=== PATIENT | male | born 1955 | race Caucasian/White ===

== ENCOUNTER → 2023-11-22 08:16 | Outpatient (REF) | payer OTHER, SELFPAY | LOC: RAD 08:16 | PROVIDERS: ATTENDING PHYSICIAN Internal Medicine Hematology & Oncology; FAMILY PHYSICIAN Family Medicine | DX: C67.4 Malignant neoplasm of posterior wall of bladder (principal); R53.83 Other fatigue | CPT/HCPCS: 71260; 74177; Q9967 ==

== ENCOUNTER 2023-11-30 18:16 | Inpatient (IN) | payer OTHER, SELFPAY ==
[2023-11-30] VITALS (7 sets, daily range): BP systolic 110–133; BP diastolic 71–93; BMI 32.8
--- NOTE | 2023-11-30 11:17 | ED.GENMED ---
History of Present Illness
<Araceli Wolf PA-C - Last Filed: 11/30/23 17:08>
General
Chief Complaint: Abdominal Symptoms
Source: patient
Exam Limitations: none
Time Seen by Provider: 11/30/23 11:15
Nursing documentation reviewed up to this point in time: agreed with
Travel History
Have you had any contact with someone who has COVID-19?: No
Do you have any symptoms of coronavirus? Fever > 100 degrees, chills, cough, shortness of breath, sore throat, loss of taste or smell, muscle aches, or headache?: No
History of Present Illness
History of Present Illness:
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
days. Patient also had associated diarrhea. Patient states that his family have had similar symptoms and have been getting better, however his symptoms persist. Patient states that with the vomiting and diarrhea, he feels very dehydrated has not
been able to eat much. His PCP sent him here because they are concerned about possible dehydration. Patient denies any blood in his vomit, melena. Patient denies any fevers or chills.
Past History
<Araceli Wolf PA-C - Last Filed: 11/30/23 17:08>
Past History
ED Past Medical History: CVA, HTN, Hypercholesterolemia and Other (Charleen's granulomatosis); Negative Asthma or NIDDM
ED Past Surgical History: Orthopedic and Tonsilectomy
Social History
Tobacco: Non-smoker
Alcohol: Occasional
Drug: None
Personal:
Living: with family
Employment: Employed
Family History
Family History: CAD
Review of Systems
<Araceli Wolf PA-C - Last Filed: 11/30/23 17:08>
Review of Systems
All Other Systems: ROS reviewed and negative except as documented in HPI and ROS
Phy Exam
<Araceli Wolf PA-C - Last Filed: 11/30/23 17:08>
Physical Exam
Physical Exam:
General: Patient is well appearing and in no acute distress; non-toxic
Skin: Warm and dry, no rashes or lesions
Head: Normocephalic, atraumatic
Eyes: Sclera non-icteric. EOMs intact. PERRLA.
Cardiac: Tachycardic otherwise regular rhythm, no murmurs
Peripheral Vascular: No lower extremity edema
Pulm: Normal respiratory effort, no wheezes, rales, or rhonchi
Abdomen: Diffuse epigastric abdominal tenderness with guarding. Abdomen distended. Bowel sounds not heard. No palpable abdominal masses.
Neuro: CN II-XII intact, no focal neurologic deficits.
Psychiatric: Appropriate mood and affect.
Course
<Araceli Wolf PA-C - Last Filed: 11/30/23 17:08>
Orders/Labs/Results
Orders:
Orders
11/30/23 11:28
0.9% Sodium Chloride 1000 ml [Nss] 1,000 ml IV BOLUS
11/30/23 11:43
Complete Blood Count/With Diff Urgent
Comprehensive Metabolic Panel Urgent
Lipase Urgent
11/30/23 11:51
CT Abd/pel Without Iv Or Oral Urgent
Reason For Exam: epigastric abdominal pain, per dr. mcgrath
0.9% Sodium Chloride 500 ml [Nss] 500 ml IV BOLUS
11/30/23 11:52
Ondansetron Injectable [Zofran] 4 mg IV NOW STA
11/30/23 13:44
Consult Surgery [SURGICAL CONSULT] Urgent
Consulting Provider: Charles Falcon
Was physician already notified: Yes
Abnormal Lab Results
11/30/23
11:43
Absolute Lymphs (auto) 1.0 L 10^3/uL
(1.2-3.4)
Absolute Monos (auto) 1.1 H 10^3/uL
(0.1-0.6)
Lymphocytes % 15.5 L %
(20.5-51.1)
Monocytes % 17.6 H %
(1.7-9.3)
Carbon Dioxide 21 L mmol/L
(22-30)
BUN 61 H mg/dl
(9-20)
Creatinine 1.8 H mg/dL
(0.7-1.3)
Glucose 139 H mg/dl
(70-99)
ALT 92 H U/L
(0-50)
11/30/23 11:43
11/30/23 11:43
Vital Signs
Initial and Last Documented VS:
Initial Vital Signs
Temp Pulse Resp BP Pulse Ox
97.8 F 116 20 131/93 95
11/30/23 11:12 11/30/23 11:12 11/30/23 11:12 11/30/23 11:12 11/30/23 11:12
Last Documented Vital Signs
Temp Pulse Resp BP Pulse Ox
97.8 F 107 18 131/76 95
11/30/23 11:12 11/30/23 15:09 11/30/23 15:09 11/30/23 15:09 11/30/23 15:09
<Krishna Mcgrath MD - Last Filed: 11/30/23 14:44>
Orders/Labs/Results
Orders:
Orders
11/30/23 11:28
0.9% Sodium Chloride 1000 ml [Nss] 1,000 ml IV BOLUS
11/30/23 11:43
Complete Blood Count/With Diff Urgent
Comprehensive Metabolic Panel Urgent
Lipase Urgent
11/30/23 11:51
CT Abd/pel Without Iv Or Oral Urgent
Reason For Exam: epigastric abdominal pain, per dr. mcgrath
0.9% Sodium Chloride 500 ml [Nss] 500 ml IV BOLUS
11/30/23 11:52
Ondansetron Injectable [Zofran] 4 mg IV NOW STA
11/30/23 13:44
Consult Surgery [SURGICAL CONSULT] Urgent
Consulting Provider: Charles Falcon
Was physician already notified: Yes
Abnormal Lab Results
11/30/23
11:43
Absolute Lymphs (auto) 1.0 L 10^3/uL
(1.2-3.4)
Absolute Monos (auto) 1.1 H 10^3/uL
(0.1-0.6)
Lymphocytes % 15.5 L %
(20.5-51.1)
Monocytes % 17.6 H %
(1.7-9.3)
Carbon Dioxide 21 L mmol/L
(22-30)
BUN 61 H mg/dl
(9-20)
Creatinine 1.8 H mg/dL
(0.7-1.3)
Glucose 139 H mg/dl
(70-99)
ALT 92 H U/L
(0-50)
11/30/23 11:43
11/30/23 11:43
Vital Signs
Initial and Last Documented VS:
Initial Vital Signs
Temp Pulse Resp BP Pulse Ox
97.8 F 116 20 131/93 95
11/30/23 11:12 11/30/23 11:12 11/30/23 11:12 11/30/23 11:12 11/30/23 11:12
Last Documented Vital Signs
Temp Pulse Resp BP Pulse Ox
97.8 F 107 18 131/76 95
11/30/23 11:12 11/30/23 15:09 11/30/23 15:09 11/30/23 15:09 11/30/23 15:09
<Araceli Wolf PA-C - Last Filed: 11/30/23 17:08>
MDM/Problems Addressed
Differential Diagnosis Includes:
Differentials include gastroenteritis, small bowel obstruction, pancreatitis, cholecystitis, C. difficile colitis, gastritis
MDM/Problems Addressed:
nausea, vomiting, abdominal pain
Chronic conditions affecting care:
HTN, HLP, bladder cancer status post prostatectomy/urostomy,
<Araceli Wolf PA-C - Last Filed: 11/30/23 17:08>
*Critical Care Note
Total Time (30-74mins, 75-104mins- exclusive of procedures): Not Applicable
<SIMEON Aguilar Last Filed: 11/30/23 17:08>
Patient Management
Escalation/DeEscalation of care consider admission/obs:
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
days. On exam, he has a distended abdomen and lack of bowel sounds. He has an DAVID, likely from dehdyration. CT scan demonstrates a small bowel obstruction. PT was seen by surgery who will follow patient admit to hospitalist, no plan for surgery as
of now,
<Araceli Wolf PA-C - Last Filed: 11/30/23 17:08>
Update Note
Update Note:
1:39 pm--general surgery was consulted via tiger text
1:47 pm--updated patient on results
ED Attending Note
<SIMEON Aguilar Last Filed: 11/30/23 17:08>
-
Portions of this chart may have been created with voice recognition software.� Occasional wrong word or��sound alike� substitutions may have occurred due to the inherent limitations of voice recognition software.
<Krishna Mcgrath MD - Last Filed: 11/30/23 14:44>
ED Attending Note
Patient seen and examined by attending physician: Yes
I performed the substantive portion of visit, reviewed & personally made and approve the management plan that is documented in note by myself or JAYSON.: Yes
ED Attending Note:
68-year-old male presents with nausea vomiting. Started with diarrhea 3 to 4 days ago. Other family members with similar like symptoms however they all improved. However since then patient has had abdominal distention and been unable to keep p.o.
fluid or solids down. Some vague mid abdominal discomfort.
On exam patient is nontoxic in no obvious distress. Lungs clear and equal. Heart regular rate and rhythm no murmur. Abdomen with moderate tension with no significant bowel sounds and mild mid abdominal tenderness. Ureteral conduit
Impression: Although this may be a gastroenteritis similar to family members and concerned with the abdominal distention for SBO. CT pending.
Discharge Plan
Departure
Patient Disposition: Admit
Date of Disposition: 11/30/23
Time of Disposition: 17:04
Admit to: Med/Surg
Presentation/result/management discussed w/ accepting MD/DO: Hospitalist
Patient with high blood pressure during this ER visit?: Yes
Condition: Fair
Discharge Problem:
Small intestine obstruction
Prescriptions:
No Action
losartan 50 MG tablet
100 mg PO 1800
methylprednisolone 4 MG tablet
4 mg PO DAILY
aspirin 81 MG tablet,delayed release (DR/EC)
81 mg PO DAILY
rosuvastatin 5 MG tablet
5 mg PO 1800
mycophenolate mofetil [CellCept] 250 mg Capsule
500 mg PO DAILY
Referrals:
NONE,* [Active] -
Interventions
Interventions:
*Risk Screen - Suicide Last Done: 11/30/23 11:22
*General Assessment Last Done: 11/30/23 11:22
*Neglect/Abuse Screening Last Done: 11/30/23 11:22
ED- Fall Risk Assessment Last Done: 11/30/23 11:22
*ED COVID-19 Vaccine History Last Done: 11/30/23 11:12
NG-Ejyqwk-Bxwymfxtmw Assessment Last Done: 11/30/23 11:22
Discharge Date and Time
Print Language: BULGARIAN
[2023-11-30] MEDS: NSS 1000 IV ×2 (11:44→20:26)
[2023-11-30] MEDS: NSS 500 IV (11:54)
[2023-11-30] MEDS: ZOFRAN 4 MG IV (11:57)
[2023-11-30 12:00] LABS: % Basophils 0.8 % (0-2); % Eosinophils 0.6 % (0-6); % Immature Granulocytes 0.3 % (0-0.5); % Lymphocytes 15.5 % (20.5-51.1); % Monocytes 17.6 % (1.7-9.3); % Neutrophils 65.2 % (42.2-75.2); Absolute Basophils 0.1 10^3/uL (0-0.2); Absolute Monocytes 1.1 10^3/uL (0.1-0.6); Absolute Neutrophils 4.2 10^3/uL (1.4-6.5); Hematocrit 48.2 % (39.0-52.0); Hemoglobin 16.6 g/dL (13.0-18.0); Mean Corp Hgb Conc. 34.4 g/dL (33.0-37.0); Mean Corpuscular Hgb 30.9 pg (27.0-31.0); Mean Corpuscular Volume 89.8 fL (80.0-94.0); Mean Platelet Volume 9.4 fL (7.4-10.4); Nucleated Red Blood Cells % 0 % (-); Platelet Count 247 10^3/uL (130-400); Red Blood Cell Count 5.37 10^6/uL (4.70-6.10); Red Cell Dist. Width 13.1 % (11.5-14.5); White Blood Cell Count 6.5 10^3/uL (4.8-10.8)
[2023-11-30 12:37] LABS: Blood Urea Nitrogen 61 mg/dl (9-20); Glucose 139 mg/dl (70-99); eGFR 40.75
[2023-11-30 12:38] LABS: Albumin 4.3 g/dl (3.5-5.0); Alkaline Phosphatase 52 U/L (38-126); Calcium 9.3 mg/dl (8.4-10.2); Carbon Dioxide 21 mmol/L (22-30); Chloride 102 mmol/L (98-107); Potassium 4.1 mmol/L (3.5-5.1); Sodium 135 mmol/L (135-145)
[2023-11-30 12:39] LABS: ALT (SGPT) 92 U/L (0-50); AST (SGOT) 46 U/L (17-59)
[2023-11-30 12:50] LABS: Lipase 71 U/L (23-300)
--- NOTE | 2023-11-30 16:25 | CON.GS ---
Consultation
-
Requesting Provider: Luciano
Performing Provider: Ezekiel
Reason for Consultation: SBO
Medical History
-
Chief Complaint: Abd pain
History of Present Illness:
68M with acute onset diarrhea that began 3 days ago. His and 2 sons also had similar GI complaints around this time. His diarrhea progressed to distention with n/v. He has been unable to take PO and was referred to the ED by PCP with concern
for dehydration. Never had a similar issue before. He has had a normal BM since the diarrhea occurred 3 days ago but is unsure about flatus. He is not presently nauseated but did receive zofran. His urostomy has been functioning well. He is on
prednisone for Charleen's.
Past Medical History
Past Medical History: Other (CVA, HTN, Hypercholesterolemia and Other (Charleen's granulomatosis))
Past Surgical History: Orthopedic, Tonsilectomy and Urological (robotic cystectomy and urostomy)
Social History
Tobacco: Non-Smoker
Alcohol: Occasional
Drug: None
Personal:
Living: With Family
Employment: Employed (dentist)
Family History
Family History: Other (as per HPI)
Allergies / Home Medications
Allergy/AdvReac Type Severity Reaction Status Date / Time
rituximab Allergy coughing Verified 11/30/23 11:13
�Medication �Instructions �Recorded �Confirmed �Type
aspirin 81 mg tablet,delayed 81 mg PO DAILY 03/23/21 09/23/22 History
release
losartan 50 mg tablet 100 mg PO 1800 03/23/21 09/23/22 History
methylprednisolone 4 mg tablet 4 mg PO DAILY 03/23/21 09/23/22 History
rosuvastatin 5 mg tablet 5 mg PO 1800 03/23/21 09/23/22 History
mycophenolate mofetil 250 mg 500 mg PO DAILY 04/08/22 09/23/22 History
capsule (CellCept)
Review of Systems
-
A 10 point review of systems was completed, and was negative except as per HPI.
Physical Exam
Vital Signs
Temp Pulse Resp BP Pulse Ox
97.8 F 107 18 131/76 95
11/30/23 11:12 11/30/23 15:09 11/30/23 15:09 11/30/23 15:09 11/30/23 15:09
Lab Results
11/30/23 11:43
11/30/23 11:43
WBC 6.5 10^3/uL (4.8-10.8) 11/30/23 11:43
Hgb 16.6 g/dL (13.0-18.0) 11/30/23 11:43
Hct 48.2 % (39.0-52.0) 11/30/23 11:43
Plt Count 247 10^3/uL (130-400) 11/30/23 11:43
Abs Immat Gran (auto) 0.0 10^3/uL (0-0.05) 11/30/23 11:43
Neutrophils % 65.2 % (42.2-75.2) 11/30/23 11:43
Physical Exam
General: No Apparent Distress
HEENT: Normocephalic and Anicteric
GI: Soft, Non Tender, Distended (moderate distention with tympany) and Other (urostomy ppv with clear yellow fluid in bag)
Skin: Warm and Dry
Neuro: AO x 3
Psych: Calm
Data Reviewed
-
CT Scan: Image Personally Visualized and interpreted, Report Reviewed by me and Discussed with Patient
Labs: Labs Reviewed by me and Discussed with Patient
Old Records: Reviewed
Assessment / Plan
-
68M with SBO
Sick contacts with GI complaints recently among family members, perhaps an element og gastroenteritis contributing to presentation
No leukocytosis
BUN 61, Cr 1.8, possible DAVID
CT with dilated jejunum and decompressed distal small bowel, possible transition point at anterior abdominal wall in left lower quadrant (near Pfannenstiel scar)
Limited study without contrast
Plan:
Admit to Hospitalist
NPO/IVF
PRN pain meds / anti-emetics
NGT if vomiting
Monitor for ROBF
If no improvement within 24-48 hrs consider PO contrast study
DVT ppx
Will follow
--- NOTE | 2023-11-30 17:25 | HPS.HSE ---
Family Physician
-
Family Physician: Lenard Finley
Chief Complaint
-
abdominal pain
History of Present Illness
68-year-old male past medical history of Charleen's granulomatosis, hypertension, hyperlipidemia, prior TIA, bladder cancer status post urostomy, presenting with diffuse upper abdominal pain, nausea vomiting for the past few days since Tuesday. This
was associate with some diarrhea initially but he has not had a bowel movement in 1 to 2 days.. He states that his family members have had similar symptoms starting 6 days ago and have been getting better however since symptoms have persisted. He
has had decreased p.o. intake for the past few days. Primary care sent him to the emergency room. He denies any blood in the vomit or dark stool. He denies any fevers or chills.
Medical History
Past Medical History
Past Medical History: Reports Other (Charleen's granulomatosis, hypertension, hyperlipidemia, prior TIA, bladder cancer status post urostomy, )
Past Surgical History: Reports Urological
Social History
Tobacco: Non-smoker
Alcohol: Occasional
Drug: None
Family History
Family History: Not pertinent
Allergies / Home Medications
Allergies reflects when Allergies were last updated in [facility].
Home Medications with original date entered in [facility]
Allergy/Medication List:
Allergies
Allergy/AdvReac Type Severity Reaction Status Date / Time
rituximab Allergy coughing Verified 11/30/23 11:13
Home Medications
aspirin 81 mg tablet,delayed release 81 mg PO DAILY@0700 03/23/21
methylprednisolone 4 mg tablet 4 mg PO QPM 03/23/21
amlodipine 5 mg tablet 5 mg PO DAILY 11/30/23
losartan 100 mg tablet 100 mg PO QPM 11/30/23
rosuvastatin 20 mg tablet 20 mg PO QPM 11/30/23
tadalafil 5 mg tablet 5 mg PO QPM 11/30/23
Review of Systems
-
History Source: Patient
A 12 point ROS was completed and negative except as noted: Yes
Constitutional: Reports No Symptoms
EENT: Reports No Symptoms
Respiratory: Reports No Symptoms
Cardiac: Reports No Symptoms
Abdomen/GI: Reports See HPI
: Reports No Symptoms
Musculoskeletal: Reports No Symptoms
Skin: Reports No Symptoms
Neurological: Reports No Symptoms
Endocrine: Reports No Symptoms
Hematologic/Lymphatic: Reports No Symptoms
Psych: Reports No Symptoms
Physical Exam
Vital Signs
Vital Signs
Temp Pulse Resp BP Pulse Ox
97.8 F 107 18 131/76 95
11/30/23 11:12 11/30/23 15:09 11/30/23 15:09 11/30/23 15:09 11/30/23 15:09
Physical Exam
General: Well Developed, Well Nourished and No Apparent Distress
HEENT: NormoCephalic, Moist mucous membranes and Atraumatic
Respiratory: Clear
Cardiac: S1/S2 and Regular Rhythm; No Murmur or Rub
GI: Soft, Non Distended, Normal Bowel Sounds and Tender (epigastric ); No Organomegaly
Rectal: Deferred by Provider
Musculoskeletal: No Clubbing, No Cyanosis and No Edema
Skin: No Rash
Neuro: Nonfocal/grossly intact
Laboratory Results
-
11/30/23 11:43
11/30/23 11:43
Laboratory Results
Total Bilirubin 1.0 mg/dl (0.2-1.3) 11/30/23 11:43
AST 46 U/L (17-59) 11/30/23 11:43
ALT 92 U/L (0-50) H 11/30/23 11:43
Alkaline Phosphatase 52 U/L (38-126) 11/30/23 11:43
Lipase 71 U/L (23-300) 11/30/23 11:43
Data Reviewed
-
Lab Data: Labs Reviewed by me
Old Records: Reviewed
Impression/Plan
-
IMPRESSION:
PLAN:
# Partial mid to distal small bowel obstruction possibly secondary to adhesions from prior bladder surgery/urostomy
-CT abdomen pelvis shows small bowel dilatation with air-fluid level suggesting partial mid to distal small bowel obstruction possibly related to adhesions
-N.p.o., cannot tolerate p.o. medications
-IV fluids
-NG tube if vomiting
-General surgery following
# DAVID prerenal
-IV fluids
-Hold losartan
Charleen's granulomatosis
-Continue methylprednisolone as IV
Essential hypertension
-Hold amlodipine, losartan
-As needed hydralazine
Hyperlipidemia
-Hold statin
Prior TIA
-Hold aspirin
Bladder cancer status post bladder resection with urostomy
-Hold tadalafil
Full code
DVT prophylaxis�heparin
N.p.o.
--- NOTE | 2023-11-30 19:49 | PTCARENOTE ---
pt arrived via stretcher from ed. pt walked in unassisted, aaox3, VSS, no c/o N/V or pain. see MAR and assessment for further details. pt has urostomy, collection bag provided. call singh within reach.
[2023-11-30] MEDS: SOLU-MEDROL PF 4 MG IV (20:26)
[2023-11-30] MEDS: HEPARIN 5000 UNITS SC (20:27)
[2023-12-01] MEDS: NSS 1000 IV ×2 (06:11→16:30)
[2023-12-01 06:40] LABS: % Basophils 0.5 % (0-2); % Eosinophils 0.3 % (0-6); % Immature Granulocytes 0.3 % (0-0.5); % Monocytes 10.6 % (1.7-9.3); % Neutrophils 74.3 % (42.2-75.2); Absolute Lymphocytes 0.9 10^3/uL (1.2-3.4); Absolute Monocytes 0.7 10^3/uL (0.1-0.6); Absolute Neutrophils 4.9 10^3/uL (1.4-6.5); Hemoglobin 14.1 g/dL (13.0-18.0); Mean Corp Hgb Conc. 34.4 g/dL (33.0-37.0); Mean Corpuscular Hgb 30.5 pg (27.0-31.0); Mean Corpuscular Volume 88.7 fL (80.0-94.0); Mean Platelet Volume 9.3 fL (7.4-10.4); Nucleated Red Blood Cells % 0 % (-); Platelet Count 222 10^3/uL (130-400); Red Blood Cell Count 4.62 10^6/uL (4.70-6.10); Red Cell Dist. Width 13.2 % (11.5-14.5); White Blood Cell Count 6.6 10^3/uL (4.8-10.8)
[2023-12-01 07:00] VITALS: BP 131/86
--- NOTE | 2023-12-01 07:36 | W.PN.GS2 ---
Today's Communication / Plan
-
`
Assessment / Plan
-
Assessment: 68-year-old male with probable ileus/resolving gastroenteritis versus resolving partial/low-grade SBO
AF, low-grade tachycardia 101, blood pressure stable
Examination unremarkable today and clinically improved
Plan: Okay to trial on liquid diet today.
If tolerates would anticipate advancing to low residue tomorrow a.m.
If continued symptoms suggestive of ongoing ileus/partial SBO with likely consider further contrast imaging of the GI tract.
Discussed with Dr. Major
Subjective Data
-
Date of Service: December 01, 2023
Patient seen and examined, resting comfortably in bed. He states he got his first good night sleep in the past few days overnight.
His nausea has subsided, no vomiting
Abdominal distention less
Abdominal pain resolved
no flatus or bowel movements but states that he now can now feel digestion occurring again
Objective Data
-
Intake and Output
11/30/23 12/01/23 12/02/23
06:59 06:59 06:59
Output Total 450 / 450
Balance -450 / -450
Output:
Urostomy output 450 / 450
Vital Signs
Temp Pulse Resp BP Pulse Ox
98.8 F 101 18 110/71 94
11/30/23 23:00 11/30/23 23:00 11/30/23 23:00 11/30/23 23:00 11/30/23 23:00
Lab Results
12/01/23 06:30
Calcium 9.3 mg/dl (8.4-10.2) 11/30/23 11:43
Total Bilirubin 1.0 mg/dl (0.2-1.3) 11/30/23 11:43
AST 46 U/L (17-59) 11/30/23 11:43
ALT 92 U/L (0-50) H 11/30/23 11:43
Alkaline Phosphatase 52 U/L (38-126) 11/30/23 11:43
Total Protein 7.0 g/dl (6.3-8.2) 11/30/23 11:43
Albumin 4.3 g/dl (3.5-5.0) 11/30/23 11:43
Physical Exam
-
NAD AAOx3
ABD: Soft, obese, protuberant but not tympanitic. Completely nontender on palpation
Right-sided urostomy pink, clear yellow urine
[2023-12-01] MEDS: HEPARIN 5000 UNITS SC ×2 (07:38→21:47)
[2023-12-01] MEDS: SOLU-MEDROL PF 4 MG IV (07:39)
[2023-12-01] MEDS: FLUSH (NSS) 2 FLUSH IV (07:43)
[2023-12-01 07:48] LABS: ALT (SGPT) 57 U/L (0-50); AST (SGOT) 28 U/L (17-59); Albumin 3.6 g/dl (3.5-5.0); Alkaline Phosphatase 47 U/L (38-126); Blood Urea Nitrogen 51 mg/dl (9-20); Calcium 8.6 mg/dl (8.4-10.2); Carbon Dioxide 25 mmol/L (22-30); Chloride 107 mmol/L (98-107); Estimated Creatinine Clearance 64 ml/min; Glucose 113 mg/dl (70-99); Potassium 4.5 mmol/L (3.5-5.1); Sodium 138 mmol/L (135-145); Total Bilirubin 0.9 mg/dl (0.2-1.3); Total Protein 5.9 g/dl (6.3-8.2); eGFR 55.09
--- NOTE | 2023-12-01 08:06 | W.PN.HOSP.TC ---
Today's Communication/Plan
-
Clear liquids today
Monitor for activity and return of bowel function
Continue treatment for DAVID with IV fluids
Continue IV methylprednisolone for now can transition to oral tomorrow
Continue to hold ARB/can restart amlodipine once taking orals
-
Assessment / Plan
Assessment / Plan
68-year-old male past medical history of Charleen's granulomatosis, hypertension, hyperlipidemia, prior TIA, bladder cancer status post urostomy, presenting with diffuse upper abdominal pain, nausea vomiting for the past few days since Tuesday. This
was associate with some diarrhea initially but he has not had a bowel movement in 1 to 2 days..
He states that his family members have had similar symptoms starting 6 days ago and have been getting better however since symptoms have persisted. He has had decreased p.o. intake for the past few days. Primary care sent him to the emergency
room. He denies any blood in the vomit or dark stool. He denies any fevers or chills.
He is now noticing some bowel activity and passing some flatus but no bowel movements yet. Less distention
# Partial mid to distal small bowel obstruction possibly secondary to adhesions from prior bladder surgery/urostomy/
-CT abdomen pelvis shows small bowel dilatation with air-fluid level rather diffuse with no definitive transition point per review of surgery/suspect for either partial small bowel obstruction versus ileus
-N.p.o.,>> transition to clear liquids today
-IV fluids to be continued
-NG tube if vomiting
-General surgery following
# DAVID prerenal
-IV fluids
-Hold losartan
-Repeat BMP in a.m.
Charleen's granulomatosis
-Continue methylprednisolone as IV
Essential hypertension
-Hold amlodipine, losartan
-As needed hydralazine
Hyperlipidemia
-Hold statin
Prior TIA
-Hold aspirin
Bladder cancer status post bladder resection with urostomy
-Hold tadalafil
Full code
DVT prophylaxis�heparin
N.p.o.
Anticipated Discharge: Within 24 hours
Subjective/Interval History
-
Date of Service: December 01, 2023
Has noticed less distention overnight and now feels that he has an appetite that he did not before and feels that he is starting to get some function back in his belly. Passing flatus. Urostomy output has diminished from the usual.
Objective Data
-
Labs:
Laboratory Results
12/01/23
06:30
WBC 6.6
Hgb 14.1
Hct 41.0
Plt Count 222
Sodium 138
Potassium 4.5
Chloride 107
Carbon Dioxide 25
BUN 51 H
Creatinine 1.4 H
Glucose 113 H
Calcium 8.6
Total Bilirubin 0.9
AST 28
ALT 57 H
Alkaline Phosphatase 47
Vital Signs:
Vital Signs
Temp Pulse Resp BP Pulse Ox
97.8 F 87 16 131/86 96
12/01/23 07:00 12/01/23 07:00 12/01/23 07:00 12/01/23 07:00 12/01/23 07:00
I&O
11/30/23 12/01/23 12/02/23
06:59 06:59 06:59
Output Total 450 / 450
Balance -450 / -450
Review of Systems
-
History Source: Patient
Constitutional: Reports No Symptoms
EENT: Reports No Symptoms Reported
Respiratory: Reports No Symptoms
Cardiac: Reports No Symptoms
Abdomen/GI: Reports Abdominal Pain, Constipated, Anorexia and Bloated
Physical Exam
-
General: Well Developed
HEENT: Normocephalic
Respiratory: Clear to Auscultation
Cardiac: Regular Rhythm
GI: Soft, Normal Bowel Sounds, Distended and Ostomy (Urostomy with clear urine return)
Skin: Warm
Neuro: Awake, Oriented and AO x 3
Psych: Calm
Data Reviewed
-
Total Time Spent with Patient (in minutes): 56
CT Scan: Report Reviewed by me (Reviewed with general surgery)
Labs: Labs Reviewed by me (White count normal hemoglobin 14.1/creatinine slightly elevated from baseline 1.4 but entered at 1.8 BUN 51)
[2023-12-01] MEDS: NORVASC 5 MG PO (09:46)
[2023-12-01 15:00] VITALS: BP 133/87
[2023-12-01] MEDS: ZOFRAN 4 MG IV ×2 (17:38→22:58)
[2023-12-01 22:38] VITALS: BP 121/81
[2023-12-02] MEDS: NSS 1000 IV ×2 (01:45→22:28)
[2023-12-02] MEDS: DILAUDID 0.5 MG IV (03:45)
[2023-12-02 07:00] VITALS: BP 138/81
[2023-12-02 08:18] LABS: Hematocrit 40.7 % (39.0-52.0); Hemoglobin 14.1 g/dL (13.0-18.0); Mean Corp Hgb Conc. 34.6 g/dL (33.0-37.0); Mean Corpuscular Hgb 30.9 pg (27.0-31.0); Mean Corpuscular Volume 89.1 fL (80.0-94.0); Mean Platelet Volume 9.4 fL (7.4-10.4); Platelet Count 213 10^3/uL (130-400); Red Blood Cell Count 4.57 10^6/uL (4.70-6.10); Red Cell Dist. Width 13.2 % (11.5-14.5); White Blood Cell Count 12.3 10^3/uL (4.8-10.8)
[2023-12-02] MEDS: NORVASC 5 MG PO (08:18)
[2023-12-02] MEDS: SOLU-MEDROL PF 4 MG IV (08:19)
[2023-12-02] MEDS: HEPARIN 5000 UNITS SC ×2 (08:19→22:28)
[2023-12-02] MEDS: ZOFRAN 4 MG IV (08:34)
--- NOTE | 2023-12-02 08:38 | W.PN.HOSP.TC ---
Today's Communication/Plan
-
Well transition back to clear liquids
Given return of symptoms we will also obtain abdominal x-ray to assess status of ileus versus small bowel obstruction
Continue IV fluids as resolving DAVID today's labs still pending
Assessment / Plan
Assessment / Plan
68-year-old male past medical history of Charleen's granulomatosis, hypertension, hyperlipidemia, prior TIA, bladder cancer status post urostomy, presenting with diffuse upper abdominal pain, nausea vomiting for the past few days since Tuesday. This
was associate with some diarrhea initially but he has not had a bowel movement in 1 to 2 days..
He states that his family members have had similar symptoms starting 6 days ago and have been getting better however since symptoms have persisted. He has had decreased p.o. intake for the past few days. Primary care sent him to the emergency
room. He denies any blood in the vomit or dark stool. He denies any fevers or chills.
He is now noticing some bowel activity and passing some flatus but no bowel movements yet. Less distention
# Partial mid to distal small bowel obstruction possibly secondary to adhesions from prior bladder surgery/urostomy/
-CT abdomen pelvis shows small bowel dilatation with air-fluid level rather diffuse with no definitive transition point per review of surgery/suspect for either partial small bowel obstruction versus ileus
-N.p.o.,>> after transition to full liquids developed nausea and vomiting yesterday and still feels distended this morning
-Obtain abdominal x-ray to assess bowel obstruction and contrast progression if any.
-IV fluids to be continued
-NG tube if vomiting
-General surgery following
# DAVID prerenal
-IV fluids
-Hold losartan
-Repeat BMP in a.m.
Charleen's granulomatosis
-Continue methylprednisolone as IV
Essential hypertension
-Hold amlodipine, losartan
-As needed hydralazine
Hyperlipidemia
-Hold statin
Prior TIA
-Hold aspirin
Bladder cancer status post bladder resection with urostomy
-Hold tadalafil
Full code
DVT prophylaxis�heparin
N.p.o.
Anticipated Discharge: 24 - 48 hours
Subjective/Interval History
-
Date of Service: December 02, 2023
Complains of nausea and increased abdominal distention and pain had 2 bowel movement yesterday but also vomited after transition to full liquid diet.
Objective Data
-
Labs:
Laboratory Results
12/02/23
07:55
WBC 12.3 H
Hgb 14.1
Hct 40.7
Plt Count 213
Sodium Pending
Potassium Pending
Chloride Pending
Carbon Dioxide Pending
BUN Pending
Creatinine Pending
Glucose Pending
Calcium Pending
Total Bilirubin Pending
AST Pending
ALT Pending
Alkaline Phosphatase Pending
Vital Signs:
Vital Signs
Temp Pulse Resp BP Pulse Ox
98.0 F 91 16 138/81 94
12/02/23 07:00 12/02/23 07:00 12/02/23 07:00 12/02/23 07:00 12/02/23 07:00
I&O
12/01/23 12/02/23 12/03/23
06:59 06:59 06:59
Intake Total 960 / 960
Output Total 450 / 450 1250 / 1250
Balance -450 / -450 -290 / -290
Review of Systems
-
History Source: Patient
Constitutional: Reports No Appetite
Respiratory: Reports No Symptoms
Cardiac: Reports No Symptoms
Abdomen/GI: Reports Abdominal Pain and Nausea
Physical Exam
-
General: Obese
HEENT: Normocephalic
Respiratory: Clear to Auscultation
Cardiac: Regular Rhythm
GI: Tender and Distended (diffuse /less active as yesterday)
Skin: Warm
Psych: Calm
Data Reviewed
-
Total Time Spent with Patient (in minutes): 45
Labs: Labs Reviewed by me
[2023-12-02 09:00] LABS: ALT (SGPT) 187 U/L (0-50); AST (SGOT) 151 U/L (17-59); Albumin 3.4 g/dl (3.5-5.0); Alkaline Phosphatase 50 U/L (38-126); Blood Urea Nitrogen 39 mg/dl (9-20); Calcium 8.7 mg/dl (8.4-10.2); Carbon Dioxide 26 mmol/L (22-30); Chloride 108 mmol/L (98-107); Estimated Creatinine Clearance 64 ml/min; Glucose 128 mg/dl (70-99); Potassium 4.2 mmol/L (3.5-5.1); Sodium 138 mmol/L (135-145); Total Bilirubin 0.7 mg/dl (0.2-1.3); Total Protein 5.8 g/dl (6.3-8.2); eGFR 55.09
--- NOTE | 2023-12-02 09:57 | W.PN.GS2 ---
Addendum entered and electronically signed by Zack Tijerina MD 12/02/23 11:25:
will get a CT a/p with po/iv contrast to better assess bowel distention
Original Note:
Today's Communication / Plan
-
Will back down to n.p.o. with sips of clears and okay for meds.
Check electrolytes BMP, magnesium, Phos.
IV fluids
Surgery will continue to follow
Assessment / Plan
-
Assessment: 68-year-old male with probable ileus/resolving gastroenteritis versus resolving partial/low-grade SBO.
AF, tachycardic to 116, distended on exam.
X-ray with impressive paralytic ileus (small bowel dilated up to 5 cm) but air in the colon and no air-fluid levels making small bowel obstruction much less likely.
Plan:
Will back down to n.p.o. with sips of clears and okay for meds.
Check electrolytes BMP, magnesium, Phos.
IV fluids
Surgery will continue to follow
Time Spent
Total Time Spent with Patient (in minutes): 20
Subjective Data
-
Date of Service: December 02, 2023
Interval Events:
No acute events overnight. Very nauseous, no vomiting. No bowel function. Feels bloated.
Objective Data
-
Intake and Output
12/01/23 12/02/23 12/03/23
06:59 06:59 06:59
Intake Total 960 / 960
Output Total 450 / 450 1250 / 1250
Balance -450 / -450 -290 / -290
Intake:
Oral fluids 960 / 960
Output:
Urine, Voided 700 / 700
Urostomy output 450 / 450 550 / 550
Vital Signs
Temp Pulse Resp BP Pulse Ox
98.0 F 91 16 138/81 94
12/02/23 07:00 12/02/23 07:00 12/02/23 07:00 12/02/23 07:00 12/02/23 07:00
Lab Results
12/02/23 07:55
12/02/23 07:55
Calcium 8.7 mg/dl (8.4-10.2) 12/02/23 07:55
Total Bilirubin 0.7 mg/dl (0.2-1.3) 12/02/23 07:55
AST 151 U/L (17-59) H 12/02/23 07:55
ALT 187 U/L (0-50) H 12/02/23 07:55
Alkaline Phosphatase 50 U/L (38-126) 12/02/23 07:55
Total Protein 5.8 g/dl (6.3-8.2) L 12/02/23 07:55
Albumin 3.4 g/dl (3.5-5.0) L 12/02/23 07:55
Physical Exam
-
GENERAL/NEURO: Awake, Alert, looks uncomfortable and nauseous with multiple empty vomit bags in his lap
CHEST: Unlabored breathing on RA
ABDOMEN: Soft, obese, Non-Tender, very distended.
[2023-12-02] MEDS: OMNIPAQUE 50 ML PO (12:00)
--- NOTE | 2023-12-02 12:16 | CM ---
Met with pt at bedside
Lives with in a 2 story home
Describes self as independent, driving
DME - none
SNF - denies past hx
HH - has used [facility] in past
PCP - Dr Lenard Finley
Pharm - [employer]
Has ride at d/c
Plan - anticipate home no needs vs with HH
[2023-12-02] MEDS: COMPAZINE 5 MG IV (12:53)
[2023-12-02 14:55] VITALS: BP 149/85
[2023-12-02 15:50] VITALS: BMI 32.8
[2023-12-02 23:25] VITALS: BP 143/84
[2023-12-03] MEDS: COMPAZINE 5 MG IV (03:49)
[2023-12-03] MEDS: NSS 1000 IV (05:31)
[2023-12-03 07:00] VITALS: BP 134/91
[2023-12-03] MEDS: HEPARIN 5000 UNITS SC ×2 (07:56→20:39)
[2023-12-03] MEDS: NORVASC 5 MG PO (07:56)
[2023-12-03] MEDS: SOLU-MEDROL PF 4 MG IV (07:57)
--- NOTE | 2023-12-03 08:13 | W.PN.HOSP.TC ---
Today's Communication/Plan
-
Await pending labs
Order follow-up abdominal x-rays to follow contrast study of yesterday
Continue IV fluids/repeat chemistries in a.m.
Assessment / Plan
Assessment / Plan
68-year-old male past medical history of Charleen's granulomatosis, hypertension, hyperlipidemia, prior TIA, bladder cancer status post urostomy, presenting with diffuse upper abdominal pain, nausea vomiting for the past few days since Tuesday. This
was associate with some diarrhea initially but he has not had a bowel movement in 1 to 2 days..
He states that his family members have had similar symptoms starting 6 days ago and have been getting better however since symptoms have persisted. He has had decreased p.o. intake for the past few days. Primary care sent him to the emergency
room. He denies any blood in the vomit or dark stool. He denies any fevers or chills.
He is now noticing some bowel activity and passing some flatus but no bowel movements yet. Less distention
# Partial mid to distal small bowel obstruction possibly secondary to adhesions from prior bladder surgery/urostomy/
-Initial abdominal survey films show/suspect for either partial small bowel obstruction versus ileus
-Follow-up CT with oral contrast :
Mid small bowel obstruction with transition point in the left lower abdomen.
Postoperative changes consistent with prior bowel surgery with right lower quadrant ileostomy.
-N.p.o.,>> after transition to full liquids developed nausea and vomiting yesterday and still feels distended this morning
-Obtain abdominal x-ray to assess bowel obstruction and contrast progression if any.
-IV fluids to be continued
-NG tube if vomiting
-General surgery following
# DAVID prerenal
-IV fluids
-Hold losartan
-Repeat BMP in a.m.
Charleen's granulomatosis
-Continue methylprednisolone as IV
Essential hypertension
-Hold amlodipine, losartan
-As needed hydralazine
Hyperlipidemia
-Hold statin
Prior TIA
-Hold aspirin
Bladder cancer status post bladder resection with urostomy
-Hold tadalafil
Full code
DVT prophylaxis�heparin
N.p.o.
Anticipated Discharge: 24 - 48 hours
Subjective/Interval History
-
Date of Service: December 03, 2023
An episode of emesis after attempts at drinking some apple juice yesterday/had several loose bowel movements since denies significant abdominal pain presently.
Objective Data
-
Labs:
Laboratory Results
12/03/23
07:44
WBC Pending
Hgb Pending
Hct Pending
Plt Count Pending
Sodium Pending
Potassium Pending
Chloride Pending
Carbon Dioxide Pending
BUN Pending
Creatinine Pending
Glucose Pending
Calcium Pending
Total Bilirubin Pending
AST Pending
ALT Pending
Alkaline Phosphatase Pending
Vital Signs:
Vital Signs
Temp Pulse Resp BP Pulse Ox
97.4 F 95 18 134/91 97
12/03/23 07:00 12/03/23 07:00 12/03/23 07:00 12/03/23 07:00 12/03/23 07:00
I&O
12/02/23 12/03/23 12/04/23
06:59 06:59 06:59
Intake Total 960 / 960 480 / 480
Output Total 1250 / 1250 1125 / 1125
Balance -290 / -290 -645 / -645
Review of Systems
-
History Source: Patient
All other systems: Reviewed and negative
Constitutional: Reports No Symptoms
EENT: Reports No Symptoms Reported
Respiratory: Reports No Symptoms
Cardiac: Reports No Symptoms
Abdomen/GI: Reports Nausea, Vomiting, Diarrhea and Indigestion
Physical Exam
-
General: Obese
HEENT: Normocephalic
Respiratory: Clear to Auscultation
Cardiac: Regular Rhythm
GI: Soft and Distended (Less than yesterday); Negative Normal Bowel Sounds (Hypoactive)
Skin: Warm
Neuro: Awake
Psych: Calm
Data Reviewed
-
Total Time Spent with Patient (in minutes): 45
CT Scan: Report Reviewed by me (Mid small bowel obstruction with transition point in the left lower abdomen. 2). Postoperative changes consistent with prior bowel surgery with right lower quadrant ileostomy.)
[2023-12-03 08:25] LABS: Hematocrit 43.6 % (39.0-52.0); Hemoglobin 14.9 g/dL (13.0-18.0); Mean Corp Hgb Conc. 34.2 g/dL (33.0-37.0); Mean Corpuscular Hgb 30.9 pg (27.0-31.0); Mean Corpuscular Volume 90.5 fL (80.0-94.0); Mean Platelet Volume 9.9 fL (7.4-10.4); Platelet Count 228 10^3/uL (130-400); Red Blood Cell Count 4.82 10^6/uL (4.70-6.10); Red Cell Dist. Width 13.1 % (11.5-14.5)
[2023-12-03 09:12] LABS: ALT (SGPT) 196 U/L (0-50); AST (SGOT) 79 U/L (17-59); Albumin 3.9 g/dl (3.5-5.0); Alkaline Phosphatase 52 U/L (38-126); Blood Urea Nitrogen 37 mg/dl (9-20); Calcium 9.2 mg/dl (8.4-10.2); Carbon Dioxide 21 mmol/L (22-30); Chloride 108 mmol/L (98-107); Estimated Creatinine Clearance 69 ml/min; Glucose 109 mg/dl (70-99); Potassium 4.1 mmol/L (3.5-5.1); Sodium 140 mmol/L (135-145); Total Bilirubin 0.9 mg/dl (0.2-1.3); Total Protein 6.4 g/dl (6.3-8.2); eGFR > 60.00
--- NOTE | 2023-12-03 11:58 | W.PN.GS2 ---
Addendum entered and electronically signed by Krishna Rubalcava MD 12/03/23 14:19:
I saw and examined the patient.
The ACCOUNT DIRECTOR's note was reviewed and I agree with the note.
Comment:
Seen in am with ACCOUNT DIRECTOR.
Mild discomfort. Loose BMs. Some N/V last pm.
Vitals ok. WBC down to 10.0.
Abdomen mildly distended and nontender.
Today's XRay reviewed. Unchanged. Still PSBO.
Continue current care.
Will recheck abdominal films tomorrow.
Original Note:
Today's Communication / Plan
-
Continue NPO with sips only
XR in AM
Assessment / Plan
-
Assessment: 68-year-old male with ileus/resolving gastroenteritis versus partial/low-grade SBO
CT more consistent with pSBO, likely secondary to adhesions from prior surgery. XR this am without much improvement
Tachycardia resolved
Leukocytosis resolved
Patient appears a little more comfortable today
Nausea today, vomiting last night. Still with diarrhea.
Plan:
Continue n.p.o. with sips of clears and okay for meds.
Follow labs
IV fluids as per medical team
XR in AM
Send stool studies
Surgery will continue to follow
Subjective Data
-
Date of Service: December 03, 2023
Patient seen and evaluated at bedside. Some intermittent nausea with vomiting last night. None since. Still with diarrhea. Mild pain.
Objective Data
-
Intake and Output
12/02/23 12/03/23 12/04/23
06:59 06:59 06:59
Intake Total 960 / 960 480 / 480
Output Total 1250 / 1250 1125 / 1125
Balance -290 / -290 -645 / -645
Intake:
Oral fluids 960 / 960 480 / 480
Output:
Urine, Voided 700 / 700
Urostomy output 550 / 550 1125 / 1125
Vital Signs
Temp Pulse Resp BP Pulse Ox
97.4 F 95 18 134/91 97
12/03/23 07:00 12/03/23 07:00 12/03/23 07:00 12/03/23 07:00 12/03/23 07:00
Lab Results
12/03/23 07:44
12/03/23 07:44
Calcium 9.2 mg/dl (8.4-10.2) 12/03/23 07:44
Total Bilirubin 0.9 mg/dl (0.2-1.3) 12/03/23 07:44
AST 79 U/L (17-59) H 12/03/23 07:44
ALT 196 U/L (0-50) H 12/03/23 07:44
Alkaline Phosphatase 52 U/L (38-126) 12/03/23 07:44
Total Protein 6.4 g/dl (6.3-8.2) 12/03/23 07:44
Albumin 3.9 g/dl (3.5-5.0) 12/03/23 07:44
Physical Exam
-
GENERAL/NEURO: Awake, Alert, looks more comfortable today
CHEST: Unlabored breathing on RA
ABDOMEN: Soft, obese, Non-Tender, very distended, urostomy with ramon urine
[2023-12-03 15:00] VITALS: BP 130/81
[2023-12-03] MEDS: NSS IV (20:38)
[2023-12-03 23:40] VITALS: BP 143/85
[2023-12-04] MEDS: NSS 1000 IV ×2 (06:08→22:22)
[2023-12-04 07:00] VITALS: BP 143/80
[2023-12-04 07:25] LABS: Hematocrit 40.6 % (39.0-52.0); Mean Corp Hgb Conc. 34.5 g/dL (33.0-37.0); Mean Corpuscular Hgb 30.9 pg (27.0-31.0); Mean Corpuscular Volume 89.6 fL (80.0-94.0); Platelet Count 203 10^3/uL (130-400); Red Blood Cell Count 4.53 10^6/uL (4.70-6.10); White Blood Cell Count 7.7 10^3/uL (4.8-10.8)
[2023-12-04] MEDS: HEPARIN 5000 UNITS SC ×2 (08:05→20:28)
[2023-12-04] MEDS: NORVASC 5 MG PO (08:05)
[2023-12-04] MEDS: SOLU-MEDROL PF 4 MG IV (08:05)
[2023-12-04 08:15] LABS: Blood Urea Nitrogen 26 mg/dl (9-20); Calcium 8.9 mg/dl (8.4-10.2); Carbon Dioxide 19 mmol/L (22-30); Chloride 110 mmol/L (98-107); Estimated Creatinine Clearance 81 ml/min; Glucose 86 mg/dl (70-99); Potassium 3.7 mmol/L (3.5-5.1); Sodium 137 mmol/L (135-145); eGFR > 60.00
--- NOTE | 2023-12-04 08:44 | W.PN.HOSP.TC ---
Today's Communication/Plan
-
Patient frustrated over lack of progress
Awaiting repeat abdominal survey films today
Continue IV fluids
Continue to monitor electrolytes with correcting renal failure
Surgery following
Assessment / Plan
Assessment / Plan
68-year-old male past medical history of Charleen's granulomatosis, hypertension, hyperlipidemia, prior TIA, bladder cancer status post urostomy, presenting with diffuse upper abdominal pain, nausea vomiting for the past few days since Tuesday. This
was associate with some diarrhea initially but he has not had a bowel movement in 1 to 2 days..
He states that his family members have had similar symptoms starting 6 days ago and have been getting better however since symptoms have persisted. He has had decreased p.o. intake for the past few days. Primary care sent him to the emergency
room. He denies any blood in the vomit or dark stool. He denies any fevers or chills.
He is now noticing some bowel activity and passing some flatus but no bowel movements yet. Less distention
# Partial mid to distal small bowel obstruction possibly secondary to adhesions from prior bladder surgery/urostomy/
-Initial abdominal survey films show/suspect for either partial small bowel obstruction versus ileus
-Follow-up CT with oral contrast :
Mid small bowel obstruction with transition point in the left lower abdomen.
Postoperative changes consistent with prior bowel surgery with right lower quadrant ileostomy.
-Follow-up abdominal x-ray still showing partial small bowel obstruction with lack of progression of contrast
-N.p.o.,>> after transition to full liquids developed nausea and vomiting yesterday
-Obtain abdominal x-ray to assess bowel obstruction and contrast progression if any.
-IV fluids to be continued
-NG tube if vomiting
-General surgery following
# DAVID prerenal
-IV fluids
-Hold losartan
-Repeat BMP in a.m.
Charleen's granulomatosis
-Continue methylprednisolone as IV
Essential hypertension
-Hold amlodipine, losartan
-As needed hydralazine
Hyperlipidemia
-Hold statin
Prior TIA
-Hold aspirin
Bladder cancer status post bladder resection with urostomy
-Hold tadalafil
Full code
DVT prophylaxis�heparin
N.p.o.
Anticipated Discharge: 24 - 48 hours
Subjective/Interval History
-
Date of Service: December 04, 2023
Still having loose bowel movements and small quantity no emesis this morning continued abdominal distention
Objective Data
-
Labs:
Laboratory Results
12/04/23 12/04/23
06:38 06:39
WBC 7.7
Hgb 14.0
Hct 40.6
Plt Count 203
Sodium 137
Potassium 3.7
Chloride 110 H
Carbon Dioxide 19 L
BUN 26 H
Creatinine 1.1
Glucose 86
Calcium 8.9
Vital Signs:
Vital Signs
Temp Pulse Resp BP Pulse Ox
97.8 F 80 16 143/80 96
12/04/23 07:00 12/04/23 07:00 12/04/23 07:00 12/04/23 07:00 12/04/23 07:00
I&O
12/03/23 12/04/23 12/05/23
06:59 06:59 06:59
Intake Total 480 / 480
Output Total 1125 / 1125 2500 / 2500
Balance -645 / -645 -2500 / -2500
Review of Systems
-
All other systems: Not reviewed unless documented
Abdomen/GI: Reports Nausea
Physical Exam
-
General: Well Developed
HEENT: Normocephalic
Respiratory: Clear to Auscultation
Cardiac: Regular Rhythm
GI: Soft, Tender and Distended
Data Reviewed
-
Total Time Spent with Patient (in minutes): 45
Medical Tests (Nuc Med, Echo etc): Report Reviewed by me
Labs: Labs Reviewed by me (White count is normalized/BUN and creatinine trending down)
--- NOTE | 2023-12-04 12:14 | W.PN.GS2 ---
Addendum entered and electronically signed by Krishna Rubalcava MD 12/04/23 14:32:
I saw and examined the patient.
The FILLER SIFTER HELPER's note was reviewed and I agree with the note.
Comment:
Seen in am with FILLER SIFTER HELPER.
Having flatus and BMs. Feels 'a bit better'.
Vitals and labs ok.
XRays still with some SB distension but less that before.
Trial clears.
Original Note:
Today's Communication / Plan
-
Clear liquids
XR in AM
Assessment / Plan
-
Assessment: 68-year-old male with ileus/resolving gastroenteritis versus partial/low-grade SBO. CT more consistent with pSBO, likely secondary to adhesions from prior surgery. XR this am without much improvement
AFVSS
XR with somewhat less distention than previous per my review
Leukocytosis resolved
Patient appears a little more comfortable today
C-diff neg, other stools spec pending
Plan:
Trial on clear liquids
Follow labs
IV fluids as per medical team
XR in AM
Surgery will continue to follow
Subjective Data
-
Date of Service: December 04, 2023
Patient seen and examined at bedside. Denies n/v. Passing stools as previous. OOB to chair, states he is feeling a bit better today. Still with abdominal cramping primarily on the left side.
Objective Data
-
Intake and Output
12/03/23 12/04/23 12/05/23
06:59 06:59 06:59
Intake Total 480 / 480
Output Total 1125 / 1125 2500 / 2500
Balance -645 / -645 -2500 / -2500
Intake:
Oral fluids 480 / 480
Output:
Urine, Lanza 1800 / 1800
Urostomy output 1125 / 1125 700 / 700
Vital Signs
Temp Pulse Resp BP Pulse Ox
97.8 F 80 16 143/80 96
12/04/23 07:00 12/04/23 07:00 12/04/23 07:00 12/04/23 07:00 12/04/23 07:00
Lab Results
12/04/23 06:39
12/04/23 06:38
Calcium 8.9 mg/dl (8.4-10.2) 12/04/23 06:38
Total Bilirubin 0.9 mg/dl (0.2-1.3) 12/03/23 07:44
AST 79 U/L (17-59) H 12/03/23 07:44
ALT 196 U/L (0-50) H 12/03/23 07:44
Alkaline Phosphatase 52 U/L (38-126) 12/03/23 07:44
Total Protein 6.4 g/dl (6.3-8.2) 12/03/23 07:44
Albumin 3.9 g/dl (3.5-5.0) 12/03/23 07:44
Physical Exam
-
GENERAL/NEURO: Awake, Alert, looks more comfortable today
CHEST: Unlabored breathing on RA
ABDOMEN: Soft, obese, Non-Tender, distended, urostomy with ramon urine
[2023-12-04 15:00] VITALS: BP 138/69
[2023-12-04] MEDS: COMPAZINE 5 MG IV (22:17)
[2023-12-04] MEDS: NSS IV (22:21)
[2023-12-04 22:50] VITALS: BP 145/96
[2023-12-05 07:30] VITALS: BP 141/91
[2023-12-05 08:03] LABS: Blood Urea Nitrogen 26 mg/dl (9-20); Calcium 8.9 mg/dl (8.4-10.2); Carbon Dioxide 21 mmol/L (22-30); Chloride 107 mmol/L (98-107); Estimated Creatinine Clearance 74 ml/min; Glucose 89 mg/dl (70-99); Potassium 3.9 mmol/L (3.5-5.1); Sodium 137 mmol/L (135-145); eGFR > 60.00
[2023-12-05] MEDS: HEPARIN 5000 UNITS SC ×2 (08:04→20:11)
[2023-12-05] MEDS: SOLU-MEDROL PF 4 MG IV (08:08)
[2023-12-05] MEDS: NORVASC 5 MG PO (08:11)
[2023-12-05] MEDS: NSS 1000 IV ×2 (08:13→18:30)
[2023-12-05] MEDS: COMPAZINE 5 MG IV ×2 (08:13→18:27)
--- NOTE | 2023-12-05 09:14 | W.PN.GS2 ---
Today's Communication / Plan
-
Clears for now.
X-ray in the morning.
Will continue to follow with serial abdominal exams.
Assessment / Plan
-
Assessment: 68-year-old male with ileus/resolving gastroenteritis versus partial/low-grade SBO. CT more consistent with pSBO, likely secondary to adhesions from prior surgery. XR this am without much improvement
AFVSS
XR with somewhat less distention than previous per my review
Leukocytosis resolved
Patient appears a little more comfortable today
C-diff neg, other stools spec pending
Plan:
Initially planned on advancing to a regular diet however still has persistent dilated loops of bowel so we will keep on clears.
Follow labs BMP and CBC.
IV fluids as per medical team
XR in AM
Surgery will continue to follow
Time Spent
Total Time Spent with Patient (in minutes): 20
Subjective Data
-
Date of Service: December 05, 2023
Interval Events:
No acute events overnight. Slept well. Pain Controlled. Denies Nausea/Vomiting, +bowel function. Tolerating clears.
Objective Data
-
Intake and Output
12/04/23 12/05/23 12/06/23
06:59 06:59 06:59
Intake Total 600 / 600
Output Total 2500 / 2500 750 / 750
Balance -2500 / -2500 -150 / -150
Intake:
Oral fluids 600 / 600
Output:
Urine, Lanza 1800 / 1800
Urostomy output 700 / 700 750 / 750
Other:
Number of approximated MODERATE 1
amounts of urine
Vital Signs
Temp Pulse Resp BP Pulse Ox
98.0 F 85 18 141/91 96
12/05/23 07:30 12/05/23 07:30 12/05/23 07:30 12/05/23 07:30 12/05/23 07:30
Lab Results
12/04/23 06:39
12/05/23 06:38
Calcium 8.9 mg/dl (8.4-10.2) 12/05/23 06:38
Total Bilirubin 0.9 mg/dl (0.2-1.3) 12/03/23 07:44
AST 79 U/L (17-59) H 12/03/23 07:44
ALT 196 U/L (0-50) H 12/03/23 07:44
Alkaline Phosphatase 52 U/L (38-126) 12/03/23 07:44
Total Protein 6.4 g/dl (6.3-8.2) 12/03/23 07:44
Albumin 3.9 g/dl (3.5-5.0) 12/03/23 07:44
Physical Exam
-
GENERAL/NEURO: Awake, Alert, no distress
CHEST: Unlabored breathing on RA
ABDOMEN: Soft, obese, distended but improved, nontender.
--- NOTE | 2023-12-05 11:53 | W.PN.HOSP.TC ---
Today's Communication/Plan
-
clears, serial Abd exams, encourage OOBTC/Ambulation
repeat AXR in AM
follow GS recs
Assessment / Plan
Assessment / Plan
Assessment:
Partial mid to distal small bowel obstruction possibly secondary to adhesions from prior bladder surgery/urostomy
concern for ileus as well given recent gastroenteritis
- GS following
- initial CT: Mid small bowel obstruction with transition point in the left lower abdomen.
- follow serial AXRs
- clears
- OOBTC/Ambulation encouraged
- pain control, anti-emetics
DAVID prerenal
- IV fluids
- Hold losartan
- Repeat BMP improving
Charleen's granulomatosis
- Continue methylprednisolone; switch back to PO
Essential hypertension
- Hold losartan
- continue CCB
- As needed hydralazine
Hyperlipidemia
- hold statin
Prior TIA
- hold aspirin
Bladder cancer status post bladder resection with urostomy
- Hold tadalafil
DVT ppx: SC Heparin
Code: Full
Anticipated Discharge: 24 - 48 hours
Subjective/Interval History
-
Date of Service: December 05, 2023
denies any new complaints currently
passing gas and pain improving but AXR remains with dilated loops
Objective Data
-
Labs:
Laboratory Results
12/05/23
06:38
Sodium 137
Potassium 3.9
Chloride 107
Carbon Dioxide 21 L
BUN 26 H
Creatinine 1.2
Glucose 89
Calcium 8.9
Vital Signs:
Vital Signs
Temp Pulse Resp BP Pulse Ox
98.0 F 85 18 141/91 96
12/05/23 07:30 12/05/23 07:30 12/05/23 07:30 12/05/23 07:30 12/05/23 07:30
I&O
12/04/23 12/05/23 12/06/23
06:59 06:59 06:59
Intake Total 600 / 600
Output Total 2500 / 2500 750 / 750
Balance -2500 / -2500 -150 / -150
Physical Exam
-
General: No Apparent Distress
HEENT: Normocephalic and Atraumatic
Respiratory: Negative Wheezes
Cardiac: Regular Rhythm and S1/S2
GI: Soft and Distended
Genito-urinary: No Costovertebral Tender
Musculoskeletal: No Edema
Neuro: AO x 3
Psych: Calm
Data Reviewed
-
Total Time Spent with Patient (in minutes): 41
Labs: Labs Reviewed by me
[2023-12-05 12:48] LABS: ALT (SGPT) 79 U/L (0-50); AST (SGOT) 29 U/L (17-59); Albumin 3.2 g/dl (3.5-5.0); Alkaline Phosphatase 45 U/L (38-126); Total Protein 5.5 g/dl (6.3-8.2)
[2023-12-05 15:30] VITALS: BP 147/88
--- NOTE | 2023-12-05 16:40 | CM ---
Case management following for d/c planning
Resolving gastroenteritis/ileus
Slowly advancing diet
CM will cont to follow for d/c needs
Plan - anticipate home no needs
[2023-12-05 23:27] VITALS: BP 135/76
[2023-12-06 06:27] LABS: Hematocrit 37.8 % (39.0-52.0); Hemoglobin 13.4 g/dL (13.0-18.0); Mean Corp Hgb Conc. 35.4 g/dL (33.0-37.0); Mean Corpuscular Hgb 30.8 pg (27.0-31.0); Mean Corpuscular Volume 86.9 fL (80.0-94.0); Mean Platelet Volume 9.6 fL (7.4-10.4); Platelet Count 201 10^3/uL (130-400); Red Blood Cell Count 4.35 10^6/uL (4.70-6.10); Red Cell Dist. Width 12.7 % (11.5-14.5); White Blood Cell Count 7.5 10^3/uL (4.8-10.8)
[2023-12-06] MEDS: NSS 1000 IV (06:34)
[2023-12-06 07:28] LABS: ALT (SGPT) 121 U/L (0-50); AST (SGOT) 66 U/L (17-59); Albumin 3.1 g/dl (3.5-5.0); Alkaline Phosphatase 47 U/L (38-126); Blood Urea Nitrogen 21 mg/dl (9-20); Calcium 8.6 mg/dl (8.4-10.2); Carbon Dioxide 20 mmol/L (22-30); Chloride 106 mmol/L (98-107); Estimated Creatinine Clearance 81 ml/min; Glucose 86 mg/dl (70-99); Potassium 3.8 mmol/L (3.5-5.1); Sodium 134 mmol/L (135-145); Total Bilirubin 1.1 mg/dl (0.2-1.3); Total Protein 5.4 g/dl (6.3-8.2); eGFR > 60.00
[2023-12-06 07:30] VITALS: BP 145/88
[2023-12-06] MEDS: NORVASC 5 MG PO (08:03)
[2023-12-06] MEDS: HEPARIN 5000 UNITS SC ×2 (08:04→21:18)
--- NOTE | 2023-12-06 08:10 | W.PN.GS2 ---
Today's Communication / Plan
-
-- Fulls
-- X-ray abdomen pending
Assessment / Plan
-
Assessment: 68-year-old male with ileus/resolving gastroenteritis versus partial/low-grade SBO. CT more consistent with pSBO, likely secondary to adhesions from prior surgery. XR this am without much improvement
AFVSS
Leukocytosis resolved
XR with somewhat less distention than previous per my review, repeat pending
C-diff neg, other stools spec pending
Patient appears a little more comfortable today
Plan:
-- Fulls
-- X-ray abdomen pending
-- Surgery will continue to follow
Subjective Data
-
Date of Service: December 06, 2023
Feels improved and hungry. Denies nausea or vomiting. Passing flatus and loose stools. No significant abdominal pain.
Objective Data
-
Intake and Output
12/05/23 12/06/23 12/07/23
06:59 06:59 06:59
Intake Total 600 / 600 2620 / 2620
Output Total 750 / 750 650 / 650
Balance -150 / -150 1969 / 1969
Intake:
Oral fluids 600 / 600 1520 / 1520
IV fluids (Total) 1100 / 1100
Output:
Urine, Lanza 650 / 650
Urostomy output 750 / 750
Other:
Number of approximated MODERATE 1
amounts of urine
Vital Signs
Temp Pulse Resp BP Pulse Ox
97.5 F 84 16 134/92 96
12/06/23 07:30 12/06/23 08:03 12/06/23 07:30 12/06/23 08:03 12/06/23 07:30
Lab Results
12/06/23 05:44
12/06/23 05:44
Calcium 8.6 mg/dl (8.4-10.2) 12/06/23 05:44
Total Bilirubin 1.1 mg/dl (0.2-1.3) 12/06/23 05:44
AST 66 U/L (17-59) H 12/06/23 05:44
ALT 121 U/L (0-50) H 12/06/23 05:44
Alkaline Phosphatase 47 U/L (38-126) 12/06/23 05:44
Total Protein 5.4 g/dl (6.3-8.2) L 12/06/23 05:44
Albumin 3.1 g/dl (3.5-5.0) L 12/06/23 05:44
Physical Exam
-
Gen: NAD
Abd: soft, NT, distended, tympanitic, non-peritoneal
--- NOTE | 2023-12-06 09:51 | W.PN.HOSP.TC ---
Today's Communication/Plan
-
Fulls; ADAT as per GS
Assessment / Plan
Assessment / Plan
Assessment:
Partial mid to distal small bowel obstruction possibly secondary to adhesions from prior bladder surgery/urostomy
concern for ileus as well given recent gastroenteritis
- GS following
- initial CT: Mid small bowel obstruction with transition point in the left lower abdomen.
- follow serial AXRs
- advanced to fulls per GS
- OOBTC/Ambulation encouraged
- pain control, anti-emetics
DAVID prerenal
- s/p IV fluids
- resume losartan
- Repeat BMP improving
Charleen's granulomatosis
- Continue methylprednisolone; switch back to PO
Essential hypertension
- resume losartan
- continue CCB
- As needed hydralazine
Hyperlipidemia
- continue statin
Prior TIA
- continue aspirin
Bladder cancer status post bladder resection with urostomy
- Hold tadalafil
DVT ppx: SC Heparin
Code: Full
Anticipated Discharge: 24 - 48 hours
Subjective/Interval History
-
Date of Service: December 06, 2023
feeling more improved, more hungry
no n/v
+stools (loose), + flatus
no pain
Objective Data
-
Labs:
Laboratory Results
12/06/23
05:44
WBC 7.5
Hgb 13.4
Hct 37.8 L
Plt Count 201
Sodium 134 L
Potassium 3.8
Chloride 106
Carbon Dioxide 20 L
BUN 21 H
Creatinine 1.1
Glucose 86
Calcium 8.6
Total Bilirubin 1.1
AST 66 H
ALT 121 H
Alkaline Phosphatase 47
Vital Signs:
Vital Signs
Temp Pulse Resp BP Pulse Ox
97.5 F 84 16 134/92 96
12/06/23 07:30 12/06/23 08:03 12/06/23 07:30 12/06/23 08:03 12/06/23 07:30
I&O
12/05/23 12/06/23 12/07/23
06:59 06:59 06:59
Intake Total 600 / 600 2620 / 2620
Output Total 750 / 750 650 / 650
Balance -150 / -150 1969 / 1969
Physical Exam
-
General: No Apparent Distress
HEENT: Normocephalic and Atraumatic
Respiratory: Negative Wheezes or Rales
Cardiac: Regular Rhythm and S1/S2
GI: Soft
Genito-urinary: No Costovertebral Tender
Musculoskeletal: No Edema
Neuro: AO x 3
Hematologic / Lymphatic: No Lymphadenopathy
Psych: Calm
Data Reviewed
-
Total Time Spent with Patient (in minutes): 45
Labs: Labs Reviewed by me
[2023-12-06 15:30] VITALS: BP 133/87
[2023-12-06] MEDS: COZAAR 100 MG PO (17:33)
[2023-12-06] MEDS: CRESTOR 20 MG PO (17:33)
[2023-12-06] MEDS: MEDROL 4 MG PO (17:33)
[2023-12-06] MEDS: TUMS 2 TABLET PO (22:10)
[2023-12-06 23:05] VITALS: BP 130/78
[2023-12-06 23:58] VITALS: BP 130/78
[2023-12-07 06:15] LABS: ALT (SGPT) 146 U/L (0-50); AST (SGOT) 69 U/L (17-59); Albumin 3.4 g/dl (3.5-5.0); Alkaline Phosphatase 64 U/L (38-126); Blood Urea Nitrogen 22 mg/dl (9-20); Calcium 9.4 mg/dl (8.4-10.2); Carbon Dioxide 21 mmol/L (22-30); Chloride 104 mmol/L (98-107); Estimated Creatinine Clearance 81 ml/min; Glucose 111 mg/dl (70-99); Potassium 4.1 mmol/L (3.5-5.1); Sodium 134 mmol/L (135-145); Total Bilirubin 1.3 mg/dl (0.2-1.3); Total Protein 5.9 g/dl (6.3-8.2); eGFR > 60.00
[2023-12-07] MEDS: ASPIR LOW (ENTERIC COATED) 81 MG PO (06:16)
[2023-12-07 07:00] VITALS: BP 131/80
[2023-12-07 07:04] VITALS: BMI 32.2
[2023-12-07] MEDS: HEPARIN SC (08:31)
[2023-12-07] MEDS: NORVASC 5 MG PO (08:32)
--- NOTE | 2023-12-07 10:45 | W.PN.GS2 ---
Today's Communication / Plan
-
DC home
Assessment / Plan
-
Assessment: 68-year-old male with ileus/resolving gastroenteritis versus partial/low-grade SBO. CT more consistent with pSBO, likely secondary to adhesions from prior surgery. XR this am without much improvement
AFVSS
Leukocytosis resolved
Patient appears more comfortable today
Plan:
-- OK for DC home on LRD
Subjective Data
-
Date of Service: December 07, 2023
AFVSS, ambulating, urostomy functioning, passing flatus and stool, kelsey LRD
Objective Data
-
Intake and Output
12/06/23 12/07/23 12/08/23
06:59 06:59 06:59
Intake Total 2620 / 2620 2030
Output Total 650 / 650 1280 / 1280
Balance 1970 / 1970 751 / 751
Intake:
Oral fluids 1520 / 1520 1785 / 1785
IV fluids (Total) 1100 / 1100 246 / 246
Output:
Urine, Lanza 650 / 650
Urine, Voided 380 / 380
Urostomy output 900 / 900
Vital Signs
Temp Pulse Resp BP Pulse Ox
98.3 F 84 16 131/80 95
12/07/23 07:00 12/07/23 07:00 12/07/23 07:00 12/07/23 07:00 12/07/23 08:23
Lab Results
12/06/23 05:44
12/07/23 05:36
Calcium 9.4 mg/dl (8.4-10.2) 12/07/23 05:36
Total Bilirubin 1.3 mg/dl (0.2-1.3) 12/07/23 05:36
AST 69 U/L (17-59) H 05/08/24 05:36
ALT 146 U/L (0-50) H 12/07/23 05:36
Alkaline Phosphatase 64 U/L (38-126) 12/07/23 05:36
Total Protein 5.9 g/dl (6.3-8.2) L 12/07/23 05:36
Albumin 3.4 g/dl (3.5-5.0) L 12/07/23 05:36
Physical Exam
-
Gen: NAD
Abd: soft, obese, mild distention, nt
--- NOTE | 2023-12-07 12:37 | W.PN.HOSP.TC ---
Today's Communication/Plan
-
dc to home
Assessment / Plan
Assessment / Plan
Assessment:
Partial mid to distal small bowel obstruction possibly secondary to adhesions from prior bladder surgery/urostomy
concern for ileus as well given recent gastroenteritis
- GS following
- initial CT: Mid small bowel obstruction with transition point in the left lower abdomen.
- tolerated LRD; for DC home
DAVID prerenal
- s/p IV fluids
- resume losartan
- Repeat BMP improving
Charleen's granulomatosis
- Continue methylprednisolone; switch back to PO
Essential hypertension
- resume losartan
- continue CCB
- As needed hydralazine
Hyperlipidemia
- continue statin
Prior TIA
- continue aspirin
Bladder cancer status post bladder resection with urostomy
- Hold tadalafil
DVT ppx: SC Heparin
Code: Full
More than 30 minutes spent in discharge including
Final examination of the patient
Summarizing hospital stay
Instructions for continuing care to all relevant caregivers
Preparation of discharge records, prescriptions, and referral forms
Total time spent (in minutes): 41
Anticipated Discharge: Today
Subjective/Interval History
-
Date of Service: December 07, 2023
tolerating diet no complaints
Objective Data
-
Labs:
Laboratory Results
12/07/23
05:36
Sodium 134 L
Potassium 4.1
Chloride 104
Carbon Dioxide 21 L
BUN 22 H
Creatinine 1.1
Glucose 111 H
Calcium 9.4
Total Bilirubin 1.3
AST 69 H
ALT 146 H
Alkaline Phosphatase 64
Vital Signs:
Vital Signs
Temp Pulse Resp BP Pulse Ox
98.3 F 84 16 131/80 95
12/07/23 07:00 12/07/23 07:00 12/07/23 07:00 12/07/23 07:00 12/07/23 08:23
I&O
12/06/23 12/07/23 12/08/23
06:59 06:59 06:59
Intake Total 2620 / 2620 2030
Output Total 650 / 650 1280 / 1280
Balance 1969 / 1969 751 / 751
Physical Exam
-
General: No Apparent Distress
HEENT: Normocephalic and Atraumatic
Respiratory: Negative Wheezes or Rales
Cardiac: Regular Rhythm and S1/S2
GI: Soft
Genito-urinary: No Costovertebral Tender
Musculoskeletal: No Edema
Neuro: AO x 3
Hematologic / Lymphatic: No Lymphadenopathy
Psych: Calm
Data Reviewed
-
Total Time Spent with Patient (in minutes): 42
Labs: Labs Reviewed by me
--- NOTE | 2023-12-07 12:41 | W.DS.TRANS ---
DC Summary - [employer]
-
Discharge Instructions:
Discharge Diagnosis/Procedures ileus vs partial SBO - resolved
Diet Low Residue
Activity As tolerated
Bathing Restrictions None
Instructions:
Stand-Alone Forms:
Changes to Home Medications: No
Discharge Medications:
DC Medications w/original date entered in [employer]
aspirin 81 mg tablet,delayed release 81 mg PO DAILY@0700 Blood Clot Prevention/Tx 03/23/21
methylprednisolone 4 mg tablet 4 mg PO QPM Anti-Inflammatory 03/23/21
amlodipine 5 mg tablet 5 mg PO DAILY Blood Pressure 11/30/23
losartan 100 mg tablet 100 mg PO QPM Blood Pressure 11/30/23
rosuvastatin 20 mg tablet 20 mg PO QPM High Cholesterol 11/30/23
tadalafil 5 mg tablet 5 mg PO QPM Urinary Issue 11/30/23
Home Medication Changes
Pending Results: No
Total time spent discharging patient (in min): 42
--- NOTE | 2023-12-07 13:06 | CM ---
Pt for d/c today
Has ride home with
Discussed IMM
Plan - home no needs
[2023-12-07 14:31] VITALS: BP 134/72
[2023-12-07 22:11] LABS: Calprotectin, Fecal 2750 ug/g (<=49)
== END 2023-12-07 14:43 | disposition home or self-care (01) | DRG 389 ==
LOC: 3 WEST ACU 18:16
PROVIDERS: Internal Medicine; Physician Assistant; Registered Nurse; ADMITTING PHYSICIAN Hospitalist; ATTENDING PHYSICIAN Internal Medicine; CONSULT PHYSICIAN Surgery; EMERGENCY PHYSICIAN Emergency Medicine; FAMILY PHYSICIAN Family Medicine
DX: K56.51 Intestinal adhesions [bands], with partial obstruction (principal); M31.30 Wegener's granulomatosis without renal involvement; N17.9 Acute kidney failure, unspecified; K52.9 Noninfective gastroenteritis and colitis, unspecified; E78.00 Pure hypercholesterolemia, unspecified; I10 Essential (primary) hypertension; E86.0 Dehydration; Z86.73 Personal history of transient ischemic attack (TIA), and cerebral infarction without residual deficits; Z79.82 Long term (current) use of aspirin; Z85.51 Personal history of malignant neoplasm of bladder; Z79.52 Long term (current) use of systemic steroids
CPT/HCPCS: 74018; 74176; 74177; 80048; 80053; 83690; 83993; 85025; 85027; 87045; 87046; 87324; 87427; 87449; 96361; 96374; 99284; Q9967

== ENCOUNTER → 2024-04-10 08:50 | Outpatient (REF) | payer OTHER, SELFPAY | LOC: RAD 08:50 | PROVIDERS: ATTENDING PHYSICIAN Internal Medicine Hematology & Oncology; FAMILY PHYSICIAN Family Medicine; REFERRING PHYSICIAN Urology | DX: C67.4 Malignant neoplasm of posterior wall of bladder (principal); R53.83 Other fatigue | CPT/HCPCS: 71260; 74177; Q9967 ==

== ENCOUNTER → 2024-08-29 11:34 | Outpatient (REF) | payer OTHER, SELFPAY | LOC: HWRCS 11:34 | PROVIDERS: ATTENDING PHYSICIAN Internal Medicine Cardiovascular Disease; FAMILY PHYSICIAN Family Medicine | DX: I10 Essential (primary) hypertension (principal); R06.02 Shortness of breath; R53.83 Other fatigue; I25.10 Atherosclerotic heart disease of native coronary artery without angina pectoris; E78.00 Pure hypercholesterolemia, unspecified | CPT/HCPCS: 78452; 93017; A9500; J2785 ==

== ENCOUNTER → 2024-09-04 13:28 | Outpatient (REF) | payer OTHER, SELFPAY | LOC: RCS 13:28 | PROVIDERS: ATTENDING PHYSICIAN Internal Medicine Cardiovascular Disease; FAMILY PHYSICIAN Family Medicine | DX: I10 Essential (primary) hypertension (principal); R06.02 Shortness of breath; R53.83 Other fatigue; I25.10 Atherosclerotic heart disease of native coronary artery without angina pectoris; E78.00 Pure hypercholesterolemia, unspecified | CPT/HCPCS: 93306 ==

== ENCOUNTER → 2024-10-09 08:26 | Outpatient (REF) | payer OTHER, SELFPAY | LOC: RAD 08:26 | PROVIDERS: ATTENDING PHYSICIAN Internal Medicine Hematology & Oncology; FAMILY PHYSICIAN Family Medicine; REFERRING PHYSICIAN Urology | DX: C67.4 Malignant neoplasm of posterior wall of bladder (principal) | CPT/HCPCS: 71260; 74177; Q9967 ==

== ENCOUNTER → 2024-11-07 12:54 | Outpatient (REF) | payer OTHER, SELFPAY ==
[2024-11-07 13:22] VITALS: BP 157/100; BP_SYST 125
[2024-11-07 14:04] VITALS: BP 148/95; BP_SYST 107
== END ==
LOC: RADI 12:54
PROVIDERS: ATTENDING PHYSICIAN Internal Medicine Hematology & Oncology; FAMILY PHYSICIAN Family Medicine
DX: Z45.2 Encounter for adjustment and management of vascular access device (principal); C67.4 Malignant neoplasm of posterior wall of bladder
CPT/HCPCS: 36590; 77001